=== PATIENT | male | born 1945 | race Caucasian/White ===

== ENCOUNTER 2020-06-10 08:48 | Inpatient (IN) ==
[2020-06-10 09:59] LABS: Appearance Urine Cloudy (Clear); Bacteria Urine Automated Negative (Negative); Bilirubin Urine Negative (Negative); Blood Urine Negative (Negative); Color Urine Dark Yellow; Glucose Urine UA Negative (Negative); Ketones Urine Negative (Negative); Leukocyte Esterase Urine 2+ (Negative); Nitrite Urine Negative (Negative); Protein Urine Trace (Negative); Specific Gravity Urine 1.019 (1.000-1.030); Urobilinogen Urine Negative (Negative); WBC Urine Automated >30 /hpf (0-5)
[2020-06-10 10:29] LABS: Basophils # (auto) 0.02 K/uL (0-0.2); Basophils % (auto) 0.2 %; Eosinophils # (auto) 0.17 K/uL (0-0.5); Eosinophils % (auto) 1.8 %; Hematocrit (blood only) 23.8 % (42-52); Hemoglobin 7.1 g/dL (14.0-18.0); Immature Granulocytes # (auto) 0.05 K/uL (0.00-0.02); Immature Granulocytes % (auto) 0.5 %; Lymphocytes # (auto) 2.71 K/uL (1.2-3.4); Lymphocytes % (auto) 28.7 %; Mean Corpuscular Hemoglobin 29.7 pg (25-34); Mean Corpuscular Hgb Conc 29.8 g/dL (32-36); Mean Corpuscular Volume 99.6 fL (80-100); Mean Platelet Volume 9.7 fL (7.4-10.4); Monocytes # (auto) 0.71 K/uL (0.11-0.59); Monocytes % (auto) 7.5 %; Neutrophils # (auto) 5.77 K/uL (1.4-6.5); Neutrophils % (auto) 61.3 %; Platelet Count 444 K/uL (130-400); RDW Coefficient of Variation 19.1 % (11.5-14.5); RDW Standard Deviation 69.8 fL (36.4-46.3); Red Blood Count 2.39 M/uL (4.7-6.1); White Blood Count 9.43 K/uL (4.8-10.8)
--- NOTE | 2020-06-10 10:30 | XRay Report ---
XR chest 1V portable HISTORY: SEPSIS COMPARISON: None. FINDINGS: Tracheostomy tube is noted. This is likely in good position. The heart is normal in size. T here is a left lower lung zone airspace opacity consistent with a pneumonia. There is mild diffuse in terstitial thickening. This may be chronic. No pneumothorax. Suspect a trace left pleural effusion. T here are multiple displaced left-sided rib fractures. These are age-indeterminate. IMPRESSION: 1. Left lower lung zone airspace opacity. This likely represents a pneumonia. 2. Displaced left-sided rib fractures. These are age-indeterminate. No pneumothorax. 3. Suspect a trace left pleural effusion. 4. Tracheostomy tube appears in good position. ACT 112: Negative or not required by law. Electronically signed by: Sage Alves M.D. 06/10/2020 10:28 AM
[2020-06-10 10:42] LABS: RBC Urine Automated 0-4 /hpf (0-4)
[2020-06-10 10:43] LABS: Influenza A virus by PCR Negative (Neg); Influenza B virus by PCR Negative (Neg); RSV by PCR Negative (Neg); SARS CoV2 RNA(COVID-19) InHosp NEGATIVE (Negative)
[2020-06-10 10:45] LABS: Albumin Level 2.1 gm/dl (3.4-5.0); BUN Creatinine Ratio 46.9 (10-20); Calcium 8.1 mg/dl (8.5-10.1); Creatinine Clr Calc Pharmacy 29.2 ml/min; Est GFR (African American) 49.7; Est GFR (Non-African American) 42.8; Magnesium 2.6 mg/dl (1.8-2.4); Potassium 3.6 mmol/L (3.5-5.1)
[2020-06-10] MEDS ORDERED: VANCOMYCIN HCL 1,000 MG in SODIUM CHLORIDE 0.9% 500 ML IV ONE (10:46)
[2020-06-10] MEDS ORDERED: VANCOMYCIN CONSULT ACTIVE PRN (10:46)
[2020-06-10] MEDS ORDERED: CEFEPIME 2,000 MG/20 ML VIAL IV STA (10:46)
[2020-06-10] MEDS ORDERED: ACETAMINOPHEN 500 MG TAB PO STA (10:46)
[2020-06-10 10:51] LABS: Albumin Globulin Ratio 0.5 (0.9-2); Bilirubin,Total 0.2 mg/dl (0.2-1); Globulin 4.4 gm/dl (2.5-4.0); Total Protein 6.5 gm/dl (6.4-8.2); Troponin I 0.037 ng/ml (0-0.045)
[2020-06-10 11:10] LABS: INR 1.1 (0.9-1.1); Partial Thromboplastin Ratio 0.8; Partial Thromboplastin Time 20.5 Seconds (21.0-31.0); Prothrombin Time 10.9 Seconds (9.0-12.0)
[2020-06-10 11:12] LABS: Anisocytosis Present; Poikilocytosis Present
[2020-06-10] MEDS ORDERED: ACETAMINOPHEN 1000 MG/100 ML IV IV ONE (11:26)
[2020-06-10] MEDS ORDERED: ACETAMINOPHEN 1,000 MG/100 ML VIAL IV STA (11:42)
--- NOTE | 2020-06-10 11:59 | XRay Report ---
SINGLE VIEW CHEST CLINICAL HISTORY: Tracheostomy placement. FINDINGS: An AP, portable, upright chest radiograph is compared to study performed earlier the same d ay 06/10/2020. The examination is degraded by portable technique and patient rotation. A tracheostomy is unchanged in position. The heart is enlarged noting atherosclerotic calcification of the thoracic aorta. There is mild pulmonary vascular congestion. Interstitial airspace opacities are seen bilatera lly, greatest in the left midlung and at the left lung base. Small pleural effusions are suspected. N o pneumothorax is seen. The skeletal structures are osteopenic. Age indeterminant left-sided rib frac tures are noted. Degenerative change and scoliosis is seen in the thoracic spine. IMPRESSION: 1. A tracheostomy is unchanged in position. 2. Cardiomegaly with mild pulmonary vascular congestion. 3. Suspect small pleural effusions. 4. Interstitial airspace opacities are seen bilaterally, left greater than right. Correlate clinicall y for evidence of an infectious/inflammatory pneumonitis. Radiographic follow-up to resolution is rec ommended. 5. Age indeterminant left-sided rib fractures. Clinical correlation will be required. ACT 112: Negative or not required by law. Electronically signed by: Walter Valle M.D. 06/10/2020 11:58 AM
[2020-06-10] MEDS ORDERED: metroNIDAZOLE 500 MG/100 ML BAG IV STA (12:38)
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
[2020-06-10 13:13] LABS: Base Excess ABG 11.8 mEq/L (-9-1.8); HCO3 ABG 37 mmol/L (19-24); PCO2 ABG 50 mmHg (35-46); PO2 ABG 125 mmHg (80-95); pH ABG 7.48 (7.35-7.45)
[2020-06-10 13:17] LABS: Allen Test Pos (Pos)
--- NOTE | 2020-06-10 14:28 | Emergency Department Note ---
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 patient there if they want him to be admitted. 1204: Spoke with Dr. Álvarez at [facility] who states he wants the patient to be admitted to the hospital for few days to receive IV antibiotics and IV hydration and then be transferred back to [facility]. Dr. Gaspar [facility] hospitalist was contacted and evaluate the patient for admission. Impression & Plan Pneumonia Discharge Plan Visit Data Chief Complaint: Shortness of Breath/Dyspnea ED Provider: Cristino Flores Discharge Problem: Pneumonia Patient Disposition: Admitted As Inpatient Forms Stand Alone Forms: [facility] Prescriptions Prescriptions: No Action albuterol sulfate 0.63 mg/3 mL Solution For Nebulization 0.63 mg continuous nebulization TID RF: 0 amiodarone 200 mg Tablet 200 mg feeding tube DAILY RF: 0 electrolytes, oral Packet 1 packet PO BID RF: 0 cholecalciferol (vitamin D3) 1,250 mcg (50,000 unit) Capsule 2,000 unit feeding tube DAILY RF: 0 apixaban 5 mg Tablet 5 mg feeding tube Q12 RF: 0 multivitamin Tablet 1 tab feeding tube DAILY RF: 0 acetaminophen 325 mg Tablet 650 mg PO Q4H PRN (Reason: Pain) RF: 0 nystatin 500,000 unit Tablet 500,000 unit PO QID RF: 0 famotidine 20 mg Tablet 20 mg feeding tube DAILY RF: 0 ferrous sulfate 300 mg (60 mg iron)/5 mL Liquid 300 mg feeding tube DAILY RF: 0 guar gum Powder 4 ea MISCELLANEOUS TID RF: 0 folic acid 1 mg Tablet 1 mg PO DAILY RF: 0 docusate sodium 50 mg/5 mL Liquid 10 ml PO BID RF: 0 lorazepam 0.5 mg Tablet 0.5 mg PO Q8 PRN (Reason: Anxiety) RF: 0 bisacodyl 10 mg Suppository 10 mg NV DAILY PRN (Reason: Constipation) RF: 0 Biotene Moisturizing Mouth Alloy,Non-Aerosol 1 spray MUCOUS MEMBRANE 6XD RF: 0 sennosides [senna] 8.6 mg Tablet 8.6 mg PO DAILY RF: 0 polyethylene glycol 3350 17 gram Powder In Packet 17 g PO QPM RF: 0 magnesium hydroxide 400 mg/5 mL Suspension 30 ml PO DAILY RF: 0 sodium phosphates 19-7 gram/118 mL Enema 133 ml NV DAILY PRN (Reason: Constipation) RF: 0 Referrals Referrals: [facility] [Primary Care Provider] - Discharge Problem: Pneumonia Qualifiers: Pneumonia type: due to unspecified organism Laterality: left Lung location: lower lobe of lung Qualified Code(s): J18.9 - Pneumonia, unspecified organism
--- NOTE | 2020-06-10 14:41 | Electrocardiogram Report ---
Test Reason : Blood Pressure : / mmHG Vent. Rate : 097 BPM Atrial Rate : 097 BPM P-R Int : 152 ms QRS Dur : 082 ms QT Int : 412 ms P-R-T Axes : 000 034 090 degrees QTc Int : 523 ms Sinus rhythm with frequent Premature atrial complexes Prolonged QT Abnormal ECG No previous ECGs available Confirmed by Denver Trevizo ([id number]) on 06/10/2020 2:40:57 PM Referred By: ED Confirmed By:Denver Trevizo
[2020-06-10] MEDS ORDERED: CEFEPIME CONSULT ACTIVE PRN (16:04)
[2020-06-10] MEDS ORDERED: ACETAMINOPHEN 325 MG TAB PEG PRN (16:04)
[2020-06-10] MEDS: ALBUT/IPRATROP 3MG/0.5MG NEB 3 ML VIAL NEB SCH ×2 (16:41→19:49)
[2020-06-10] MEDS ORDERED: NYSTATIN SUSP 500,000 U/5 ML UDC PEG SCH (17:00)
[2020-06-10] MEDS: DEXTROSE 5% 500 ML IV SCH ×2 (17:09→21:05)
[2020-06-10] MEDS: FIBERSOURCE HN 1.2 CAL 1000 ML BAG GT SCH (18:37)
[2020-06-10] MEDS: SENNOSIDES 8.8 MG/5 ML UDC PEG SCH (18:41)
[2020-06-10] MEDS: APIXABAN 5 MG TABLET PO SCH (21:04)
[2020-06-10] MEDS: DOCUSATE SODIUM SYRUP 100 MG/10 ML UDC PEG SCH (21:04)
[2020-06-10] MEDS: NYSTATIN SUSP 500,000 U/5 ML UDC PO SCH (21:05)
[2020-06-10] MEDS: metroNIDAZOLE 500 MG/100 ML BAG IV SCH (22:06)
[2020-06-10] MEDS: CEFEPIME 2,000 MG in SYRINGE 0 ML IV SCH (23:16)
[2020-06-11] MEDS: metroNIDAZOLE 500 MG/100 ML BAG IV SCH ×3 (06:11→21:21)
[2020-06-11] MEDS: ALBUT/IPRATROP 3MG/0.5MG NEB 3 ML VIAL NEB SCH ×4 (06:18→19:20)
[2020-06-11 07:30] LABS: Hematocrit (blood only) 23.8 % (42-52); Mean Corpuscular Hemoglobin 29.4 pg (25-34); Mean Corpuscular Hgb Conc 29.4 g/dL (32-36); Mean Platelet Volume 9.8 fL (7.4-10.4); Platelet Count 456 K/uL (130-400); RDW Coefficient of Variation 19.2 % (11.5-14.5); RDW Standard Deviation 69.4 fL (36.4-46.3); Red Blood Count 2.38 M/uL (4.7-6.1); White Blood Count 8.19 K/uL (4.8-10.8)
[2020-06-11 07:35] LABS: Basophils # (auto) 0.01 K/uL (0-0.2); Basophils % (auto) 0.1 %; Eosinophils # (auto) 0.24 K/uL (0-0.5); Eosinophils % (auto) 2.9 %; Immature Granulocytes # (auto) 0.03 K/uL (0.00-0.02); Immature Granulocytes % (auto) 0.4 %; Lymphocytes # (auto) 1.88 K/uL (1.2-3.4); Monocytes # (auto) 0.71 K/uL (0.11-0.59); Monocytes % (auto) 8.7 %; Neutrophils # (auto) 5.32 K/uL (1.4-6.5); Neutrophils % (auto) 64.9 %; Poikilocytosis Present
[2020-06-11 07:40] LABS: Albumin Level 2.2 gm/dl (3.4-5.0); BUN Creatinine Ratio 46.4 (10-20); Creatinine Clr Calc Pharmacy 40.8 ml/min; Est GFR (African American) 52.1; Est GFR (Non-African American) 44.9; Magnesium 2.6 mg/dl (1.8-2.4); Potassium 3.6 mmol/L (3.5-5.1)
[2020-06-11 07:40] LABS: Creatinine Clr Calc Pharmacy 40.8 ml/min; Est GFR (African American) 52.1; Est GFR (Non-African American) 44.9
[2020-06-11 07:41] LABS: Phosphorus 3.4 mg/dl (2.5-4.9)
[2020-06-11 07:43] LABS: Albumin Globulin Ratio 0.5 (0.9-2); Bilirubin,Total 0.4 mg/dl (0.2-1); Globulin 4.8 gm/dl (2.5-4.0)
[2020-06-11] MEDS ORDERED: VANCOMYCIN HCL 1,250 MG in SODIUM CHLORIDE 0.9% 250 ML IV ONE (09:00)
[2020-06-11] MEDS: CHOLECALCIFEROL 1,000 UNITS 25 MCG TAB PEG SCH (09:34)
[2020-06-11] MEDS: DOCUSATE SODIUM SYRUP 100 MG/10 ML UDC PEG SCH ×2 (09:34→21:20)
[2020-06-11] MEDS: FERROUS SULFATE 325 MG/7.4 ML UDP PEG SCH (09:35)
[2020-06-11] MEDS: FAMOTIDINE 20 MG TAB PO SCH (09:35)
[2020-06-11] MEDS: SENNOSIDES 8.8 MG/5 ML UDC PEG SCH (09:35)
[2020-06-11] MEDS: AMIODARONE 200 MG TAB PO SCH (09:35)
[2020-06-11] MEDS: MULTIVITAMIN TAB PO SCH (09:36)
[2020-06-11] MEDS: MAGNESIUM HYDROXIDE SUSP 30 ML UDC PEG SCH (09:36)
[2020-06-11] MEDS: NYSTATIN SUSP 500,000 U/5 ML UDC PO SCH ×4 (09:36→21:20)
[2020-06-11] MEDS: FOLIC ACID 1 MG TAB PEG SCH (09:37)
--- NOTE | 2020-06-11 10:22 | Pharmacy Report ---
Pharmacy Abx Initial Consult - Date of Service June 11, 2020 - Pharmacy Dosing Scope Date of Consult: 06/10/20 Consultation requested by: Dr. Gaspar Pharmacy is consulted to initiate Vancomycin + Cefepime + Flagyl IV dosing therapy, order appropriate labs and adjust drug dose/frequency. - Subjective The patient is a 75 year old M admitted on 06/10/20 12:36. - Objective Height: 5 ft 8 in Weight: 72.2 kg Vital Signs (Past 12hrs): Vital Signs Temp Pulse Resp BP Pulse Ox 06/11/20 07:41 36.6 C 78 24 109/65 98 06/11/20 06:18 97 H 36 H 93 06/11/20 04:17 36.6 C 90 16 104/61 92 06/10/20 23:48 37.1 C 90 16 96/61 L 97 Lab Results (24hrs): Laboratory Tests (24 Hours) 06/11/20 06/11/20 06/11/20 06:44 06:21 06:21 WBC 8.19 Neut # (Auto) 5.32 Creatinine 1.49 H Est Cr Clr Drug Dosing 40.8 Procalcitonin Random Vancomycin 11.6 06/11/20 06/10/20 06/10/20 06:21 10:12 10:12 WBC Neut # (Auto) Creatinine 1.49 H 1.55 H Est Cr Clr Drug Dosing 40.8 29.2 Procalcitonin 0.37 Random Vancomycin 06/10/20 10:12 WBC 9.43 Neut # (Auto) 5.77 Creatinine Est Cr Clr Drug Dosing Procalcitonin Random Vancomycin Micro Results: 06/10/20 10:12 Aerobic Blood Culture - Pending Blood Anaerobic Blood Culture - Pending 06/10/20 10:12 Aerobic Blood Culture - Pending Blood Anaerobic Blood Culture - Pending 06/10/20 09:10 Urine Culture - Pending Urine,Clean Catch - Risk Factors for Resistance * Resident in a assisted or extended-care facility - Assessment & Plan Assessment 75 year old M initiated on IV Vancomycin + Cefepime + Flagyl for sepsis (suspected pulmonary source +/- aspiration) Unsure of baseline renal function- will dose per levels until renal function stabilizes Plan Vancomycin IV * Pt was given a loading dose: 1,000 mg (14 mg/kg) yesterday in ED ~ 1200. Unfortunately weight was incorrect in the computer so patient did not receive full 20mg/kg load. * Random level this AM = 11.6 mcg/ml indicating time to re-dose to maintain trough level 15-20 mcg/ml/ * Vancomycin 1250 mg IV (15 mg/kg) x 1 dose this AM * Repeat random level tomorrow with AM labs. Cefepime * Target dose = 2g IV Q8hrs for pulmonary indiction * Reduce dose to 2g IV Q12hrs for crcl < 60 mg/dl Metronidazole * No dose adjustment needed Pharmacy will continue to follow and will adjust dose/frequency as necessary. Thank you.
[2020-06-11] MEDS: APIXABAN 5 MG TABLET PO SCH ×2 (11:35→21:20)
[2020-06-11] MEDS: CEFEPIME 2,000 MG in SYRINGE 0 ML IV SCH ×2 (11:35→23:12)
[2020-06-11] MEDS: POLYETHYLENE (MIRALAX) 17 GM PACK PEG SCH (11:35)
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
[2020-06-11 12:28] LABS: iSTAT Creatinine 1.6 mg/dl (0.6-1.3); iSTAT Hemoglobin 7.5 g/dl (14.0-18.0); iSTAT Ionized Calcium 1.13 mmol/l (1.12-1.32); iSTAT Potassium 3.6 mmol/L (3.3-5.0)
[2020-06-11] MEDS: ACETAMINOPHEN SUSP 325 MG/10.15 ML UDC PEG PRN ×2 (15:01→23:52)
[2020-06-11] MEDS: FIBERSOURCE HN 1.2 CAL 1000 ML BAG GT SCH (17:21)
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
[2020-06-12] MEDS: ALBUT/IPRATROP 3MG/0.5MG NEB 3 ML VIAL NEB PRN ×2 (01:34→05:37)
[2020-06-12] MEDS: metroNIDAZOLE 500 MG/100 ML BAG IV SCH ×2 (06:26→14:40)
[2020-06-12 06:49] LABS: Creatinine Clr Calc Pharmacy 41.6 ml/min; Est GFR (African American) 53.4; Est GFR (Non-African American) 46.1
[2020-06-12] MEDS: ALBUT/IPRATROP 3MG/0.5MG NEB 3 ML VIAL NEB SCH ×4 (07:07→19:20)
[2020-06-12 08:25] LABS: BUN Creatinine Ratio 40.8 (10-20); Calcium 7.8 mg/dl (8.5-10.1); Creatinine Clr Calc Pharmacy 42.2 ml/min; Est GFR (African American) 54.3; Est GFR (Non-African American) 46.8; Magnesium 2.5 mg/dl (1.8-2.4)
[2020-06-12 09:13] LABS: Hematocrit (blood only) 25.7 % (42-52); Hemoglobin 7.5 g/dL (14.0-18.0); Mean Corpuscular Hemoglobin 29.4 pg (25-34); Mean Corpuscular Hgb Conc 29.2 g/dL (32-36); Mean Corpuscular Volume 100.8 fL (80-100); Mean Platelet Volume 9.9 fL (7.4-10.4); Platelet Count 420 K/uL (130-400); RDW Coefficient of Variation 18.9 % (11.5-14.5); RDW Standard Deviation 69.7 fL (36.4-46.3); Red Blood Count 2.55 M/uL (4.7-6.1); White Blood Count 8.44 K/uL (4.8-10.8)
[2020-06-12] MEDS: NYSTATIN SUSP 500,000 U/5 ML UDC PO SCH ×4 (09:22→20:14)
[2020-06-12] MEDS: SENNOSIDES 8.8 MG/5 ML UDC PEG SCH (09:22)
[2020-06-12] MEDS: FERROUS SULFATE 325 MG/7.4 ML UDP PEG SCH (09:22)
[2020-06-12] MEDS: DOCUSATE SODIUM SYRUP 100 MG/10 ML UDC PEG SCH (09:22)
[2020-06-12] MEDS: FOLIC ACID 1 MG TAB PEG SCH (09:23)
[2020-06-12] MEDS: APIXABAN 5 MG TABLET PO SCH ×3 (09:23→20:14)
[2020-06-12] MEDS: CHOLECALCIFEROL 1,000 UNITS 25 MCG TAB PEG SCH (09:23)
[2020-06-12] MEDS: MULTIVITAMIN TAB PO SCH (09:24)
[2020-06-12] MEDS: AMIODARONE 200 MG TAB PO SCH ×2 (09:24→11:05)
[2020-06-12] MEDS: FAMOTIDINE 20 MG TAB PO SCH ×2 (09:24→11:05)
[2020-06-12] MEDS: MAGNESIUM HYDROXIDE SUSP 30 ML UDC PEG SCH (09:27)
[2020-06-12] MEDS: POLYETHYLENE (MIRALAX) 17 GM PACK PEG SCH (11:46)
[2020-06-12] MEDS: CEFEPIME 2,000 MG in SYRINGE 0 ML IV SCH (11:46)
[2020-06-12] MEDS: LORazepam 0.5 MG TAB PO PRN (14:40)
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
[2020-06-12 16:38] LABS: Base Excess VBG 9.4 mEq/L; HCO3 VBG 36 mmol/L; Oxygen Saturation VBG < 60.0 %; PCO2 VBG 61 mmHg (38-50); PO2 VBG 19 mmHg; pH VBG 7.38 (7.36-7.41)
[2020-06-12] MEDS: FIBERSOURCE HN 1.2 CAL 1000 ML BAG GT SCH (17:37)
[2020-06-12] MEDS: MoRPHine SULFATE 2 MG/ML CARP IV PRN (18:14)
--- NOTE | 2020-06-12 18:39 | XRay Report ---
SINGLE VIEW CHEST CLINICAL HISTORY: Dyspnea. FINDINGS: An AP, portable, upright chest radiograph is compared to studies dated 06/10/2020. The exami nation is degraded by portable technique and patient rotation. A tracheostomy is unchanged in positio n. The heart is enlarged noting atherosclerotic calcification of the thoracic aorta. Mild pulmonary v ascular congestion persists. Asymmetric airspace opacities are seen throughout the left lung, greates t at the left lung base. A left pleural effusion is noted. No pneumothorax is seen. The skeletal stru ctures are osteopenic. Age indeterminant left-sided rib fractures are unchanged. Degenerative change and scoliosis is seen in the thoracic spine. IMPRESSION: 1. Cardiomegaly with mild pulmonary vascular congestion. 2. Small left pleural effusion. 3. There is increasing airspace consolidation in the left mid to lower lung. Correlate clinically for evidence of pneumonia/aspiration pneumonitis. ACT 112: Negative or not required by law. Electronically signed by: Walter Valle M.D. 06/12/2020 6:38 PM
[2020-06-12] MEDS: AMPICILLIN/SULBACTAM SOD 3,000 MG in 0.9 % SODIUM CHLORIDE 100 ML IV SCH (22:32)
[2020-06-13] MEDS: MoRPHine SULFATE 2 MG/ML CARP IV PRN ×3 (02:01→11:37)
[2020-06-13] MEDS: AMPICILLIN/SULBACTAM SOD 3,000 MG in 0.9 % SODIUM CHLORIDE 100 ML IV SCH ×4 (04:34→21:34)
[2020-06-13] MEDS: LORazepam 0.5 MG TAB PO PRN ×3 (05:30→21:34)
[2020-06-13] MEDS: FIBERSOURCE HN 1.2 CAL 1000 ML BAG GT SCH ×2 (07:22→17:25)
[2020-06-13] MEDS: ALBUT/IPRATROP 3MG/0.5MG NEB 3 ML VIAL NEB SCH ×4 (07:26→20:09)
[2020-06-13 08:44] LABS: BUN Creatinine Ratio 39.9 (10-20); Calcium 8.3 mg/dl (8.5-10.1); Creatinine Clr Calc Pharmacy 43.1 ml/min; Est GFR (African American) 55.7; Magnesium 2.9 mg/dl (1.8-2.4); Potassium 4.3 mmol/L (3.5-5.1)
[2020-06-13] MEDS: AMIODARONE 200 MG TAB PO SCH (08:48)
[2020-06-13] MEDS: FAMOTIDINE 20 MG TAB PO SCH (08:48)
[2020-06-13] MEDS: CHOLECALCIFEROL 1,000 UNITS 25 MCG TAB PEG SCH (08:48)
[2020-06-13] MEDS: MULTIVITAMIN TAB PO SCH (08:48)
[2020-06-13] MEDS: FOLIC ACID 1 MG TAB PEG SCH (08:48)
[2020-06-13] MEDS: FERROUS SULFATE 325 MG/7.4 ML UDP PEG SCH (08:49)
[2020-06-13] MEDS: APIXABAN 5 MG TABLET PO SCH (08:49)
[2020-06-13] MEDS: NYSTATIN SUSP 500,000 U/5 ML UDC PO SCH ×4 (08:50→19:53)
[2020-06-13 08:58] LABS: Hematocrit (blood only) 25.9 % (42-52); Hemoglobin 7.5 g/dL (14.0-18.0); Mean Corpuscular Hemoglobin 29.3 pg (25-34); Mean Corpuscular Volume 101.2 fL (80-100); Mean Platelet Volume 9.7 fL (7.4-10.4); Platelet Count 361 K/uL (130-400); RDW Coefficient of Variation 18.8 % (11.5-14.5); Red Blood Count 2.56 M/uL (4.7-6.1); White Blood Count 9.73 K/uL (4.8-10.8)
--- NOTE | 2020-06-13 11:08 | CT Scan Report ---
CT chest diagnostic wo con CLINICAL HISTORY: Worsening LLL opacity COMPARISON STUDY: Chest x-ray dated 06/12/2020 CT DOSE: 824.82 mGy.cm TECHNIQUE: CT of the thorax was performed from the thoracic inlet to the lung bases. Images are revi ewed in the axial, sagittal, and coronal planes. IV contrast was not administered for this examinatio n. A dose lowering technique was utilized adhering to the principles of ALARA. FINDINGS: Thyroid: Imaged portions of the thyroid gland are normal in appearance. Thoracic aorta: There is mild dilatation of ascending thoracic aorta which measures 38 mm. Heart: There are coronary artery calcifications. There is no significant pericardial effusion. Lungs and pleural spaces: There is a moderate left pleural effusion, possibly loculated. This slightl y exceeds water attenuation and could represent hemothorax given the patient's rib fractures. There i s lingular atelectasis/consolidation. There are compressive atelectatic changes within the left lower lobe. Right basilar opacities are likely atelectatic. A tracheostomy tube is visualized. Mediastinum: Mediastinal lymph nodes are the upper limits of normal in size. Yanci: Evaluation of hilar structures is limited without intravenous contrast. Hilar nodes are felt to be the upper limits of normal in size. Axilla: There is no pathologic axillary lymphadenopathy. There is a comminuted left scapular fracture with an adjacent hematoma. Upper abdomen: There is a 21 mm left renal cyst. Skeletal structures: There is a comminuted left scapular fracture. There are multiple displaced left- sided rib fractures. IMPRESSION: 1. Moderate left pleural effusion possibly loculated. This could represent a hemothorax. 2. Lower lobe atelectatic changes 3. Lingular atelectasis/consolidation 4. Multiple displaced left-sided rib fractures 5. Extensively comminuted displaced left scapular fracture with a significant adjacent hematoma, venu uring approximately 16 x 7 x 5 cm. ACT 112: Negative or not required by law. Electronically signed by: Gino Colon M.D. 06/13/2020 11:06 AM
[2020-06-13] MEDS: ACETAMINOPHEN SUSP 325 MG/10.15 ML UDC PEG PRN ×2 (15:21→19:52)
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
[2020-06-14] MEDS: MoRPHine SULFATE 2 MG/ML CARP IV PRN ×3 (03:10→16:31)
[2020-06-14] MEDS: AMPICILLIN/SULBACTAM SOD 3,000 MG in 0.9 % SODIUM CHLORIDE 100 ML IV SCH ×3 (03:13→16:30)
[2020-06-14 06:11] LABS: Hematocrit (blood only) 25.2 % (42-52); Hemoglobin 7.3 g/dL (14.0-18.0); Mean Corpuscular Hemoglobin 29.7 pg (25-34); Mean Corpuscular Volume 102.4 fL (80-100); Mean Platelet Volume 9.6 fL (7.4-10.4); Platelet Count 388 K/uL (130-400); RDW Coefficient of Variation 19.1 % (11.5-14.5); RDW Standard Deviation 72.6 fL (36.4-46.3); Red Blood Count 2.46 M/uL (4.7-6.1); White Blood Count 9.58 K/uL (4.8-10.8)
[2020-06-14 06:37] LABS: BUN Creatinine Ratio 39.4 (10-20); Calcium 7.9 mg/dl (8.5-10.1); Creatinine Clr Calc Pharmacy 41.6 ml/min; Est GFR (African American) 54.7; Est GFR (Non-African American) 47.2; Magnesium 2.9 mg/dl (1.8-2.4)
[2020-06-14] MEDS: ALBUT/IPRATROP 3MG/0.5MG NEB 3 ML VIAL NEB SCH ×3 (07:32→16:08)
[2020-06-14] MEDS ORDERED: SODI CHLOR 2.5MEQ/ML 14.6% 38.5 MEQ in DEXTROSE 10% 1,000 ML IV SCH (08:15)
[2020-06-14] MEDS: AMIODARONE 200 MG TAB PO SCH (08:35)
[2020-06-14] MEDS: FOLIC ACID 1 MG TAB PEG SCH (08:35)
[2020-06-14] MEDS: NYSTATIN SUSP 500,000 U/5 ML UDC PO SCH ×4 (08:35→20:16)
[2020-06-14] MEDS: FERROUS SULFATE 325 MG/7.4 ML UDP PEG SCH (08:35)
[2020-06-14] MEDS: MULTIVITAMIN TAB PO SCH (08:36)
[2020-06-14] MEDS: FAMOTIDINE 20 MG TAB PO SCH (08:36)
[2020-06-14] MEDS: CHOLECALCIFEROL 1,000 UNITS 25 MCG TAB PEG SCH (08:36)
[2020-06-14] MEDS: ACETAMINOPHEN SUSP 325 MG/10.15 ML UDC PEG PRN (08:43)
[2020-06-14] MEDS: LORazepam 0.5 MG TAB PO PRN (08:43)
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
[2020-06-14] MEDS ORDERED: LORazepam 0.5 MG TAB SL PRN (17:33)
[2020-06-14] MEDS ORDERED: BEER 1 CAN PO PRN (17:33)
[2020-06-14] MEDS ORDERED: ATROPINE SULFATE 1% OP SOLN 5 ML BTL SL PRN (17:33)
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
== END 2020-06-14 22:45 | disposition expired | DRG 871 ==
LOC: ED 08:48 → SUATTDRO 12:36 → 2S 12:36 → 2W 06-14 15:19